=== PATIENT | female | born 1955 | race Caucasian/White ===

== ENCOUNTER → 2016-09-10 | Outpatient (CLI) | payer OTHER | LOC: KOH-I 15:00 | DX: R31.0 Gross hematuria (principal); K80.20 Calculus of gallbladder without cholecystitis without obstruction; K57.30 Diverticulosis of large intestine without perforation or abscess without bleeding; N26.1 Atrophy of kidney (terminal) | CPT/HCPCS: 74178; Q9962 ==

== ENCOUNTER → 2016-09-18 | Outpatient (CLI) | payer OTHER | LOC: KOH-I 13:32 | DX: D49.1 Neoplasm of unspecified behavior of respiratory system (principal); R91.1 Solitary pulmonary nodule; K80.80 Other cholelithiasis without obstruction | CPT/HCPCS: 71250 ==

== ENCOUNTER → 2020-07-04 | Day surgery (SDC) | payer BC, OTHER ==
[~2020-07-04] MED LIST: ATORVASTATIN CA10 MG PO; CALCIUM500 MG PO; ECOTRIN81 MG PO; LANSOPRAZOLE30 MG PO; LISINOPRIL-HCT1 EACH PO; STOOL SOFTENER100 M1 PO; VITAMIN D3 PO
== END | disposition home or self-care (01) ==
LOC: OR 07:10
DX: K57.30 Diverticulosis of large intestine without perforation or abscess without bleeding (principal); K21.9 Gastro-esophageal reflux disease without esophagitis; E78.5 Hyperlipidemia, unspecified; I10 Essential (primary) hypertension; Z90.5 Acquired absence of kidney; Z79.82 Long term (current) use of aspirin; Z79.899 Other long term (current) drug therapy
CPT/HCPCS: J2704; J7120

== ENCOUNTER → 2020-09-07 | Outpatient (CLI) | payer BC, OTHER | LOC: ECHO 10:32 | DX: R06.02 Shortness of breath (principal); R01.1 Cardiac murmur, unspecified; U07.1 COVID-19; I50.33 Acute on chronic diastolic (congestive) heart failure | CPT/HCPCS: ECHO; 93306 ==

== ENCOUNTER → 2020-10-10 | Outpatient (CLI) | payer BC, OTHER | LOC: KOH-I 14:21 | DX: M79.675 Pain in left toe(s) (principal) | CPT/HCPCS: 73630 ==